=== PATIENT | male | born 1960 | race Caucasian/White ===

== ENCOUNTER 2018-06-23 08:30 | Observation (INO) | payer BC ==
[~2018-06-23] VITALS: Ht 188 cm; Wt 100.4 kg
[~2018-06-23 08:30] MED LIST: ASPIRIN 81M81 MG/TA2 PO; K-TAB20 PO; NORCO 325 MG-7.1 TAB PO; TENORMIN 2525 MG/TAB PO
[2018-06-23] MEDS ORDERED: HYGROTON 2525 MG/TAB PO (08:52)
[2018-06-23] MEDS ORDERED: TENORMIN 5050 MG/TAB PO (08:53)
[2018-06-23] MEDS ORDERED: OMEGA-3 1000 MG1 CAP PO (08:54)
[2018-06-23] MEDS ORDERED: MULTI VITAMINS1 TAB PO (08:54)
[2018-06-23 08:56] LABS: BASO % 0.5 % (0.0-2.0); EOS # 0.1 (0.0-0.7); EOS % 1.4 % (0-4.0); GRAN # 5.2 (1.4-6.5); GRAN % 65.2 % (42.2-75.2); HEMATOCRIT 48.6 % (42.0-52.0); HEMOGLOBIN 17.1 g/dl (13.5-18.0); LYMPH # 1.7 (1.2-3.4); LYMPH % 20.9 % (20.0-51.0); MEAN CELL VOLUME 78 fl (80.0-100.0); MEAN CORPUSCULAR HEMOGLOBIN 28 pg (27.0-31.0); MEAN CORPUSCULAR HGB CONC 35 g/dl (33.0-37.0); MEAN PLATELET VOLUME 10.1 fl (7.4-10.4); MONO # 0.9 (0.1-0.6); MONO % 11.6 % (1.7-9.3); PLATELET COUNT 176 K/mm3 (130-400); RED BLOOD COUNT 6.22 M/mm3 (4.20-5.60); REDCELL DISTRIBUTION WIDTH-CV 12.5 % (11.5-14.5)
[2018-06-23 09:00] LABS: PROTHROMBIN TIME 11.1 SECONDS (9.7-12.8)
[2018-06-23 09:03] LABS: PARTIAL THROMBOPLASTIN TIME 28.4 SECONDS (26.0-37.0)
[2018-06-23 09:04] LABS: ALBUMIN 4.2 gm/dL (3.5-5.0); BILIRUBIN,TOTAL 1.8 mg/dL (0.0-1.0); CALCIUM 9.5 mg/dL (8.4-10.2); CREATININE, serum 0.92 mg/dL (0.66-1.25); POTASSIUM 3.7 mmol/L (3.4-5.0); TOTAL PROTEIN 7.6 gm/dL (6.4-8.2)
[2018-06-23 09:16] LABS: TROPONIN-I 0.028 ng/mL (0.000-0.035)
[2018-06-23 14:38] VITALS: BP 122/74; PULSE 51; TEMP 98
--- NOTE | 2018-06-23 15:05 | NUR ---
Patient arrived to room from ER via wheelchair at 1340 accompanied by ER staff, and mother. Transferred to bed without difficulty. No dizziness verbalized. Denies pain, states he is hungry. Diet order noted, brought patient a sandwich. Tech here to perform echo, call light is within reach.
--- NOTE | 2018-06-23 19:30 | NUR ---
Patient resting in bed, received call from telemetry at 1700 with report that patient has converted to NSR.
[2018-06-23 20:00] VITALS: BP 121/68; PULSE 75; TEMP 98.1
--- NOTE | 2018-06-23 20:30 | NUR ---
Initial shift assessment done- denies chest pain or SOB, Tele on- SR ,,, states he feels fine- wants to go home tomorrow
[2018-06-23 23:45] VITALS: BP 107/59; PULSE 66; TEMP 98
[2018-06-24 04:36] VITALS: BP 114/68; PULSE 64; TEMP 98
--- NOTE | 2018-06-24 06:35 | NUR ---
Quiet night- no requests during the night. Tele SR rate 50-60,s
[2018-06-24 07:09] VITALS: BP 125/73; PULSE 61; TEMP 98.1
[2018-06-24] MEDS ORDERED: LOPRESSOR 550 MG/TAB PO (08:10)
[2018-06-24] MEDS ORDERED: ASPIRIN E.C. 8181 MG PO (08:22)
[2018-06-24 08:56] LABS: BASO % 0.5 % (0.0-2.0); EOS # 0.1 (0.0-0.7); GRAN # 5.2 (1.4-6.5); GRAN % 63.4 % (42.2-75.2); HEMATOCRIT 45.2 % (42.0-52.0); HEMOGLOBIN 15.6 g/dl (13.5-18.0); LYMPH % 24.6 % (20.0-51.0); MEAN CELL VOLUME 80 fl (80.0-100.0); MEAN CORPUSCULAR HEMOGLOBIN 28 pg (27.0-31.0); MEAN CORPUSCULAR HGB CONC 35 g/dl (33.0-37.0); MEAN PLATELET VOLUME 10.3 fl (7.4-10.4); MONO # 0.8 (0.1-0.6); MONO % 10.3 % (1.7-9.3); PLATELET COUNT 169 K/mm3 (130-400); RED BLOOD COUNT 5.65 M/mm3 (4.20-5.60); REDCELL DISTRIBUTION WIDTH-CV 12.8 % (11.5-14.5)
--- NOTE | 2018-06-24 09:02 | NUR ---
Patient is awake and alert sitting up in bed. States he is feeling well, menu offered to patient for breakfast. Denies any pain or other needs. Call light is within reach.
[2018-06-24 09:05] LABS: ANION GAP 6 mmol/L (7-16); BLOOD UREA NITROGEN 21 mg/dL (9-20); CARBON DIOXIDE 32 mmol/L (22-30); CHLORIDE 103 mmol/L (98-107); CREATININE, serum 1.11 mg/dL (0.66-1.25); GLUCOSE 99 mg/dL (74-106); POTASSIUM 3.5 mmol/L (3.4-5.0); SODIUM 141 mmol/L (137-145)
[2018-06-24 09:16] LABS: TROPONIN-I < 0.012 ng/mL (0.000-0.035)
--- NOTE | 2018-06-24 10:01 | NUR ---
SW met with the patient to discuss a discharge plan. The patient lives in [place]. The patient reports independence with ADLs and does not use any DME. The patient's PCP is Dr. Olu Land. The patient receives his prescriptions from [facility] in [place]. The patient does not have advanced directives in the EMR and he was not interested in obtaining a DPOA-HC form at this time. The patient plans to return home upon discharge. There are no additional needs at this time.
--- NOTE | 2018-06-24 12:36 | NUR ---
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 Escorted to front door at 1225.
== END 2018-06-24 12:25 | disposition home or self-care (01) ==
LOC: COL.ER 08:30 → MEDICAL 11:47
PROVIDERS: Family Medicine; Physician Assistant; ADMIT Family Medicine
DX: I48.0 Paroxysmal atrial fibrillation (principal); E87.6 Hypokalemia; I10 Essential (primary) hypertension; I35.1 Nonrheumatic aortic (valve) insufficiency; Z79.899 Other long term (current) drug therapy; Z90.49 Acquired absence of other specified parts of digestive tract; Z79.82 Long term (current) use of aspirin; Z82.49 Family history of ischemic heart disease and other diseases of the circulatory system
CPT/HCPCS: G0378